=== PATIENT | male | born 1950 | race African-American/Black ===

== ENCOUNTER 2016-05-23 05:28 | Inpatient (IN) | payer OTHER ==
[~2016-05-23] VITALS: Ht 175.3 cm; Wt 130.6 kg
[~2016-05-23 05:28] MED LIST: ASPIRIN EC325 MG PO; COREG 25 MG TAB25 MG PO; CRESTOR20 M1 PO; DILAUDID 4 MG TA4 MG PO; DOK100 M1 PO; LOTREL 5 MG-401 CAP PO; MIRALAX17 GM PO; MS CONTIN30 MG PO; NITROSTAT0.6 MG SL; ZOFRAN ODT4 MG SL
--- NOTE | 2016-05-23 14:14 | Admission Core Measures ---
Admission Meds I reviewed the following Meds: Current Medications Sig/Mirza Start time Last Medication Dose Stop Time Status Admin Acetaminophen 975 MG ONCE 05/23 0000 AC (Tylenol) 05/23 2358 Amlodipine Besylate 5 MG DAILY 05/24 1000 UNVr (Norvasc) Atorvastatin Calcium 40 MG 1700 05/23 170 UNVr (Lipitor) Carvedilol 25 MG BID 05/23 2200 UNVr (Coreg) Cefazolin Sodium 3,000 MG ONCE 05/23 0000 NR (Kefzol-Ancef Inj) 05/23 2358 Nitroglycerin 0.4 MG ONCE PRN 05/23 1415 UNVr (Nitrostat) Oxycodone HCl 10 MG ONCE 05/23 0000 NR (Roxicodone) 05/23 2358 Acute Coronary Syndrome Inclusion Criteria ACS Diagnosis No Inpatient Core Measures LDL Reminder: If No, please order W/I first 24hr of stay Congestive Heart Failure Inclusion Criteria CHF Diagnosis No Cerebrovascular accident Inclusion Criteria CVA/TIA Diagnosis No Inpatient Core Measures Bedside Swallow Eval Reminder: If BSE failed, place ST order Antithrombotic Reminder: Order Antithrombotic Medication by end of day 2 Antithrombotic Reminder: Document Reason Antithrombotic Not ordered by end of day 2 AFIB/Flutter Reminder: If Present, add to problem list AFIB/Flutter Reminder: Order Anticoag Medication for pts with AFIB/Flutter Atherosclerosis Reminder: If Present, add to problem list LDL Reminder: If No, please order W/I first 24hr of stay PT Order Reminder: If No, please order Venous thromboembolism Inpatient Core Measures VTE Risk Factors: Age > 40, Surgery No [facility] VTE prophylaxis d/t No contraindications No VTE Pharm Prophylaxis d/t No contraindications Inclusion Criteria - Per Current guidelines, there needs to be overlap - treatment for the first 5 days of Warfarin therapy. - Parenteral Anticoagulation (IV or SC) needs to be - given along with Warfarin therapy. VTE Diagnosis No VTE Type NONE VTE Confirmed by (Test) NONE Problem List As ranked by this Provider includes Assessment & Plan 1. Unilateral primary osteoarthritis, left hip HOME MEDS Home Med List AMLODIPINE BESYLATE/BENAZEPRIL (Lotrel 5-40 MG Capsule) 1 CAP CAP 1 CAP PO DAILY BP (Reported) Aspirin E.c. (Ecotrin) 325 MG TAB 1 TAB PO BID PRN PAIN Carvedilol (Coreg) 25 MG TAB 1 TAB PO BID HEART (Reported) Nitroglycerin (Nitrostat) 0.6 MG TAB 0.6 MG SL PRN CHEST PAIN (Reported) Rosuvastatin Calcium (Crestor) 20 MG TAB 1 TAB PO DAILY CHOLESTEROL (Reported )
[2016-05-23] MEDS ORDERED: ASPIRIN EC325 M2 PO (14:17)
[2016-05-23] MEDS ORDERED: MIRALAX17 G1 PO (14:17)
[2016-05-23] MEDS ORDERED: PRILOSEC OTC20 M1 PO (14:17)
[2016-05-23] MEDS ORDERED: DILAUDID2 M1 PO (14:17)
[2016-05-23] MEDS ORDERED: COLACE100 M1 PO (14:17)
[2016-05-23] MEDS ORDERED: MS CONTIN30 M1 PO (14:17)
--- NOTE | 2016-05-23 14:19 | Patient Discharge Instructions ---
Discharge Instructions General Discharge Information You were seen/treated for: LEFT HIP PAIN You had these procedures: LEFT TOTAL HIP REPLACEMENT Watch for these problems: INCREASING PAIN DESPITE THE USE OF PAIN MEDICATION, REDNESS, WARMTH, SWELLING. DRAINAGE OF ANY TYPE FROM INCISION. INABILITY TO BEAR WEIGHT ON LEFT LEG. FEVER GREATER THAN 101.5 DEGREES. Do not soak the wound: Yes No bath, but you may shower: Yes Special Instructions: WOUND CARE: KEEP WOUND CLEAN AND DRY. YOUR HOME CARE NURSE WILL CHANGE YOUR DRESSING ON THE SECOND DAY AFTER YOUR SURGERY. DAILY DRY DRESSING CHANGES RECOMMENDED AFTER THAT. NO OINTMENTS OF ANY TYPE ON INCISION. BLOOD THINNER: YOU WILL BE TAKING 325 MG OF ASPIRIN TWICE DAILY. THIS IS IMPORTANT IT HELPS PROTECT YOU FROM DEVELOPING A BLOOD CLOT. YOU WILL BE TAKING THIS FOR 4 WEEKS. PLEASE TAKE WITH FOOD. YOU HAVE ALSO BEEN GIVEN PRILOSEC TO HELP PROTECT YOUR STOMACH LINING WELL. BOWEL REGIMEN: PAIN MEDICATION CAN OFTEN CAUSE CONSTIPATION. IT IS VERY IMPORTANT THAT YOU TAKE A STOOL SOFTENER AND A LAXATIVE TO ENSURE REGULAR BOWEL MOVEMENTS WHILE ON PAIN MEDICATION. Diet Continue normal diet: Yes Recommended Diet: Heart Healthy Additional DIET Information: ADVANCE TOLERATED Activity Full Activity/No Limits: No Activity Self Limited: Yes Pounds, do NOT lift more than: 10 Additional ACTIVITY Info: WEIGHT BEAR TOLERATED Acute Coronary Syndrome Inclusion Criteria At DC or during hospital stay patient has or had the following: ACS DIAGNOSIS No Discharge Core Measures Meds if any: Prescribed or Continued at Discharge Meds if any: NOT Prescribed or Continued at Discharge Congestive Heart Failure Inclusion Criteria At DC or during hospital stay patient has or had the following: CHF DIAGNOSIS No Discharge Core Measures Meds if any: Prescribed or Continued at Discharge Meds if any: NOT Prescribed or Continued at Discharge Cerebrovascular accident Inclusion Criteria At DC or during hospital stay patient has or had the following: CVA/TIA Diagnosis No Discharge Core Measures Meds if any: Prescribed or Continued at Discharge Meds if any: NOT Prescribed or Continued at Discharge Venous thromboembolism Inclusion Criteria VTE Diagnosis No VTE Type NONE VTE Confirmed by (Test) NONE Discharge Core Measures - Per Current guidelines, there needs to be overlap - treatment for the first 5 days of Warfarin therapy. - If discharged on Warfarin prior to 5 days of - overlap therapy, the patient will need to be - assessed for post discharge needs including - *Post discharge parental anticoagulation - *Warfarin and/or parental anticoagulation education - *Follow up date to check INR post discharge At least 5 days overlap therapy as Inpatient No Meds if any: Prescribed or Continued at Discharge Note: Overlap Therapy is Warfarin and Anticoagulant Meds if any: NOT Prescribed or Continued at Discharge
--- NOTE | 2016-05-23 14:23 | Surgical Discharge Summary ---
Visit Information Visit Dates Admission Date: 05/23/16 Discharge Date: 05/25/16 History of Present Illness Chief Complaint: LEFT HIP PAIN SECONDARY TO OSTEOARTHRITIS Medical History Neurological: NONE EENT: NONE Cardiovascular: angina, hypertension, hyperlipidemia Respiratory: NONE Gastrointestinal: NONE Hepatic: NONE Renal: NONE Musculoskeletal: osteoarthritis Psychiatric: NONE Endocrine: diabetes (no meds) Blood Disorders: NONE Cancer(s): NONE BELT MOLDER/Reproductive: NONE History of MRSA: No History of VRE: No History of CDIFF: No Surgical History Pertinent Surgical History: knee replacement Psychosocial History Who Do You Live With? Spouse What is Your Primary Language? Dominican Review of Systems: SEE H&P Hospital Course Course Attending Physician: DAVID RICHARDSON MD Primary Care Physician: TRIP MOFFETT MD Hospital Course: PATIENT WAS ADMITTED TO THE HOSPITAL ON 05/23/2016 FOR AN ELECTIVE LEFT TOTAL HIP REPLACEMENT. HE TOLERATED THE PROCEDURE WELL. HE WAS TRANSFERRED TO A GENERAL SURGICAL FLOOR. HIS DIET WAS ADVANCED TOLERATED. HIS VITAL SIGNS WERE STABLE AND WITHIN NORMAL LIMITS. HIS PAIN WAS WELL CONTROLLED WITH PO PAIN MEDICATION. HE VOIDED SPONTANEOUSLY. HE WAS EVALUATED AND TREATED BY PHYSICAL THERAPY. HE WAS DEEMED APPROPRIATE FOR DISCHARGE. Allergies: Coded Allergies: NO KNOWN ALLERGIES (03/25/15) Disposition Summary Disposition Principal Diagnosis: LEFT HIP UINLATERAL PRIMARY OSTEOARTHRITIS Additional Diagnosis: NONE Discharge Disposition: home health services Discharge Instructions General Discharge Information Code Status: Full Code Patient's Diet: HEART HEALTHY, ADVANCE TOLERATED Patient's Activity: WEIGHT BEAR TOLERATED ON LEFT LEG Follow-Up Instructions/Appts: CALL/CONTACT DR. RICHARDSON'S OFFICE TO ARRANGE/CONFIRM FOLLOW UP APPOINTMENT TO BE SEEN IN 6 WEEKS FROM DATE OF SURGERY. Medications at Discharge Discharge Medications: Stop taking the following medications: Aspirin E.c. (Ecotrin) 325 MG TAB ORAL TWICE DAILY as needed for PAIN Qty = 6 Continue taking these medications: AMLODIPINE BESYLATE/BENAZEPRIL (Lotrel 5-40 MG Capsule) 1 CAP CAP 1 Capsule ORAL DAILY Comments: Last Taken: 03/30/15 Time: 10:00 AM Carvedilol (Coreg) 25 MG TAB 1 Tablet ORAL TWICE DAILY Comments: Last Taken: 03/30/15 Time: 10:00 AM Rosuvastatin Calcium (Crestor) 20 MG TAB 1 Tablet ORAL DAILY Comments: NOT GIVEN IN HOSPITAL Nitroglycerin (Nitrostat) 0.6 MG TAB 0.6 Milligram SUBLINGUAL as needed for CHEST PAIN Comments: NOT GIVEN IN HOSPITAL Start taking the following new medications: Aspirin (Ecotrin*) 325 MG TABLET.DR 1 Tablet ORAL TWICE DAILY Qty = 60 No Refills Comments: Last Taken: 05/25/16 Time: 1030AM Docusate Sodium (Colace) 100 MG CAPSULE 1 Capsule ORAL TWICE DAILY Qty = 14 No Refills Instructions: DISCONTINUE USE IF YOU DEVELOP LOOSE STOOL OR DIARRHEA Comments: Last Taken: 05/25/16 Time: 1030AM Hydromorphone HCl (Dilaudid) 2 MG TABLET 1-2 Tablet ORAL EVERY 4-6 HOURS as needed for PAIN Qty = 36 No Refills Comments: Last Taken: 05/24/16 Time: 1200PM Polyethylene Glycol 3350 (Miralax) 17 GRAM POWD.PACK 1 Packet ORAL DAILY Qty = 7 No Refills Instructions: dissolve in water, DISCONTINUE USE IF YOU DEVELOP LOOSE STOOL OR DIARRHEA Comments: Last Taken: 05/25/16 Time: 1030AM Morphine Sulfate (Ms Contin) 30 MG TABLET.ER 1 Tablet ORAL TWICE DAILY Qty = 6 No Refills Comments: NOT GIVEN Omeprazole Magnesium (Prilosec Otc) 20 MG TABLET.DR 1 Tablet ORAL DAILY Qty = 30 No Refills Comments: NOT GIVEN
--- NOTE | 2016-05-23 15:50 | RADIOLOGY REPORT ---
EXAMINATION: XR HIP, LEFT CLINICAL INFORMATION: Status post total hip replacement. COMPARISON: None TECHNIQUE: Two views of the left hip. FINDINGS: The components of the left total hip arthroplasty are in their expected positions. Normal alignment is noted. No acute periprosthetic fracture. There is no significant soft tissue swelling of the postoperative hip. IMPRESSION: Satisfactory positioning and alignment of components of the left total hip arthroplasty.
[2016-05-23 16:00] VITALS: BP 138/94
--- NOTE | 2016-05-23 16:00 | NUR ---
ADMISSION NOTE: PT ARRIVED TO FLOOR FROM PACU IN STRETCHER WITH DISTRIBUTION A/OX3, ROOM AIR, IV SITE INTACT, FLUIDS RUNNING, SURG DSG TO LEFT HIP C/D/I, PAIN 03/30, NO N/V, +CMS, VSS, ORIENTED TO ROOM, WILL CONTINUE TO MONITOR.
--- NOTE | 2016-05-23 16:05 | Operative Report ---
Operative/Inv Procedure Report Surgery Date: 05/23/16 Name of Procedure: Left total hip replacement Pre-Operative Diagnosis: Primary left hip DJD Post-Operative Diagnosis: Same Estimated Blood Loss: 300 Surgeon/Casing Inspector: DEBRA JIMÉNEZ,DAVID Vines Anesthesia: block Operative/Procedure Note Note: Description of Procedure: The patient was taken to the operating room and positively identified. After induction of spinal anesthesia and administration of appropriate pre-operative antibiotics, the patient was positioned supine on the operating room table and all bony prominences were well padded. After performing a surgical timeout, the left lower extremity was prepped and draped in the usual sterile fashion. A direct anterior approach was made to the left hip. The incision was carried sharply through superficial soft tissues to the level of the fascia. Meticulous hemostasis was maintained with Bovie electocautery. The fascia over the tensor fascia óscar muscle was opened sharply and the interval between the TFL and the sartorius was entered bluntly taking care to stay lateral to the lateral femoral cutaneous nerve. Retractors were placed around the femoral neck and the pericapsular fat was identified. The ascending branches of the lateral femoral circumflex vessels were identified and carefully coagulated. The pericapsular fat and anterior capsule were then resected. A napkin ring osteotomy was performed and the femoral head was removed without difficulty. Attention was then turned to the acetabulum. After appropriate placement of retractors, the acetabulum was exposed. Soft tissue was cleaned from the acetabular margin and notch. Overhanging osteophytes were removed and the teardrop was exposed. The acetabulum was then sequentially reamed to accept a 56 mm Igor Tritanium hemispherical solid back shell. This was impacted into place in the appropriate position and fitted with a 36 mm Trident X3 zero degree polyethylene insert. Attention was then turned to the femur. After performing the appropriate ligament releases, the proximal femur was exposed. It was then sequentially broached to accept a size 4 [place] Anato stem. This was trialed for leg length and stability. The trial component was removed and the final component was impacted into place. The trunnion was carefully cleaned and fit with a 36 mm, + 2.5 Biolox delta ceramic femoral head. The hip was reduced and put through a full range of motion and found to be stable. The articular space was then irrigated with sterile saline. The periarticular soft tissues were infilitrated with Marcaine. The fascial layer was closed with interrupted #1 vicryl suture and the skin was re-approximated with interrupted 2 -0 vicryl. The skin was closed with a running 3-0 V-Lock suture. Steri-strips and a sterile dressing were applied. The patient was awakened and taken to the recovery room in satisfactory condition.
--- NOTE | 2016-05-23 17:22 | PN- Orthopedic ---
Subjective Subjective: POST-OP NOTE: Expected soreness. Pain controlled. Tolerating clears. Eager to eat. Denies dizziness. No shortness of breath. No chest pains. Due to void this evening. Not yet out of bed. Objective Vital Signs and I&Os Intake & Output 05/23 1600 05/23 0800 05/23 0000 05/22 1600 05/22 0800 05/22 0000 Intake Total Output Total Balance Patient 288 lb Weight (pacu vitals reviewed / stable) Physical Exam: General - alert & oriented x 3. comfortable. no acute distress. Lungs - clear bilaterally. no w/r/r. Cardiac - s1s2. reg. Abdomen - soft. nontendender. Extremities - left hip dressing c/d/i. no hematoma. ice pack in place. nvi. calves soft / nontender. athrombics in place b/l. Assessment/Plan Assessment/Plan This 65 year old male with hx htn, now POD#0 s/p left total hip replacement, anterior approach advance diet as tolerated pain control as ordered PT eval. wbat due to void this evening angelica-operative ancef x 2 doses home meds, including beta ina, ordered asa 325 mg bid d/c planning will d/w Core Measures/Miscellaneous Venous Thromboembolism VTE Risk Factors: Age > 40, Obesity, Surgery VTE Contraindications: No Contraindications VTE Diagnosis: No VTE Type: NONE VTE Confirmed by (Test): NONE Beta Ina Is Beta Ina a Home Med? Yes If Yes, Was This Ordered Today? Yes Antibiotics Is Patient on Antibiotics? Yes If Yes: prophylaxis
[2016-05-23 21:53] VITALS: BP 146/79
[2016-05-24 01:17] VITALS: BP 156/92
[2016-05-24 03:11] VITALS: BP 162/90
[2016-05-24 06:54] VITALS: BP 144/88
[2016-05-24 08:27] LABS: ABSOLUTE BASOPHIL COUNT 0 /CUMM (0.0-0.2); ABSOLUTE EOSINOPHIL COUNT 0 /CUMM (0.0-0.7); ABSOLUTE GRANULOCYTE CT 6.3 /CUMM (1.4-6.5); ABSOLUTE LYMPH COUNT 1.2 /CUMM (1.2-3.4); ABSOLUTE MONOCYTE COUNT 0.5 /CUMM (0.10-0.60); BASOPHIL % 0.2 % (0.0-2.0); EOSINOPHIL % 0 % (0-5); GRANULOCYTE % 78.4 % (42.2-75.2); HEMATOCRIT 36.5 % (42-52); MEAN CORPUSCULAR HGB CONC 32.5 G/DL (33.0-37.0); MEAN CORPUSCULAR VOLUME 86.1 FL (80.0-94.0); MEAN PLATELET VOLUME 7.8 FL (7.4-10.4); PLATELET COUNT 190 /CUMM (130-400); RBC DISTRIBUTION WIDTH 15.5 % (11.5-14.5); RED BLOOD CELL CT 4.24 /CUMM (4.70-6.10)
[2016-05-24 10:25] VITALS: BP 152/90
--- NOTE | 2016-05-24 10:34 | PN- Orthopedic ---
Subjective Subjective: Postoperative day #1 status post left hip arthroplasty, anterior approach. Complain of moderate pain, pain medication is helping however it is hampering his rehabilitation efforts. He states he is not as mobile as he hoped to be. Denies any fever or flulike illness. No chest pain, no calf pain, no shortness of breath. Objective Vital Signs and I&Os Vital Signs Date Time Temp Pulse Resp B/P Pulse O2 O2 Flow FiO2 Ox Delivery Rate 05/24 1025 98.1 85 20 152/90 96 Room Air / 0851 86 144/88 / 0850 86 144/80 / 0849 86 144/88 / 0654 97.7 86 18 144/88 95 Room Air 05/24 0311 98.2 89 18 162/90 94 Room Air 05/24 0117 98.2 92 18 156/92 93 Room Air 05/23 2330 102 / 2153 98.2 97 20 146/79 94 05/23 1600 97.9 77 18 138/94 97 Room Air Intake & Output 05/24 1600 05/24 0800 05/24 0000 05/23 1600 05/23 0800 05/23 0000 Intake Total 960 780 Output Total 850 900 Balance 110 -120 Intake, IV 600 300 Intake, Oral 360 480 Number 0 0 Bowel Movements Output, Urine 850 900 Patient 288 lb Weight Physical Exam: Well-developed well-nourished no apparent distress. HEENT: Atraumatic, extraocular motion intact Neck: Supple, no lymphadenopathy Respiratory: No respiratory distress Extremities: No edema Left lower extremity hip dressing in place, Dressing clean dry and intact Moderate thigh edema No signs of infection. No shortening or rotation Hip range of motion is limited and without unexpected pain Neurovascularly intact distally Bilateral calves are supple, nontender. Neuro: Alert and oriented x3 Psych: Mood affect normal, normal memory normal judgment. Skin: Warm and dry, no rash on exposed skin Results Last 48 Hours of Labs: Laboratory Tests 05/24 0650 Chemistry Sodium (137 - 145 mmol/L) 137 Potassium (3.5 - 5.1 mmol/L) 4.4 Chloride (98 - 107 mmol/L) 101 Carbon Dioxide (22 - 30 mmol/L) 31 H Anion Gap (5 - 16) 6 BUN (9 - 20 mg/dL) 18 Creatinine (0.7 - 1.2 mg/dL) 0.8 Estimated GFR (>60 ml/min) > 60 BUN/Creatinine Ratio (7 - 25 %) 22.5 Hematology CBC w Diff NO MAN DIFF REQ WBC (4.8 - 10.8 /CUMM) 8.0 RBC (4.70 - 6.10 /CUMM) 4.24 L Hgb (14.0 - 18.0 G/DL) 11.9 L Hct (42 - 52 %) 36.5 L MCV (80.0 - 94.0 FL) 86.1 MCH (27.0 - 31.0 PG) 28.0 RDW (11.5 - 14.5 %) 15.5 H Plt Count (130 - 400 /CUMM) 190 MPV (7.4 - 10.4 FL) 7.8 Gran % (42.2 - 75.2 %) 78.4 H Lymphocytes % (20.5 - 51.1 %) 15.2 L Monocytes % (1.7 - 9.3 %) 6.2 Eosinophils % (0 - 5 %) 0 Basophils % (0.0 - 2.0 %) 0.2 Absolute Granulocytes (1.4 - 6.5 /CUMM) 6.3 Absolute Lymphocytes (1.2 - 3.4 /CUMM) 1.2 Absolute Monocytes (0.10 - 0.60 /CUMM) 0.5 Absolute Eosinophils (0.0 - 0.7 /CUMM) 0 Absolute Basophils (0.0 - 0.2 /CUMM) 0 PUBS MCHC (33.0 - 37.0 G/DL) 32.5 L Assessment/Plan Assessment/Plan Postop day #1 status post left total hip arthroplasty anterior approach. -Orthopedically stable, progressing slowly with rehabilitation, plan for is discharge home tomorrow -GI prophylaxis, bowel regimen for constipation -Aspirin 325 mg by mouth twice a day for DVT prophylaxis, alps -Out of bed with physical therapy, weightbearing as tolerated -Pain medication as needed -Labs stable today Core Measures/Miscellaneous Venous Thromboembolism VTE Risk Factors: Age > 40, Obesity, Surgery VTE Contraindications: No Contraindications VTE Diagnosis: No VTE Type: NONE VTE Confirmed by (Test): NONE Beta Ina Is Beta Ina a Home Med? Yes If Yes, Was This Ordered Today? Yes Antibiotics Is Patient on Antibiotics? Yes If Yes: prophylaxis
[2016-05-24 14:53] VITALS: BP 136/80
[2016-05-24 21:47] VITALS: BP 132/72
[2016-05-25 06:46] VITALS: BP 134/70
--- NOTE | 2016-05-25 08:16 | PN- Orthopedic ---
Subjective Subjective: pod#2 s/p left gera no major complaints pain control improved denies cp, sob, no n+v with diet Objective Vital Signs and I&Os Vital Signs Date Time Temp Pulse Resp B/P Pulse O2 O2 Flow FiO2 Ox Delivery Rate / 0646 99.4 103 20 134/70 93 Room Air 04/ 2206 132/72 / 2147 98.8 97 20 132/72 92 /06 1453 98.3 87 18 136/80 98 Room Air / 1025 98.1 85 20 152/90 96 Room Air / 0851 86 144/88 05/24 0850 86 144/80 05/24 0849 86 144/88 Intake & Output 05/25 1600 05/25 0800 05/25 0000 05/24 1600 05/24 0805/24 0000 Intake Total 771 720 3616 960 780 Output Total 500 850 900 Balance 023 741 9511 110 -120 Intake, IV 600 300 570 600 300 Intake, Oral 240 450 720 360 480 Number 0 0 0 Bowel Movements Output, Urine 500 850 900 Patient 288 lb Weight Physical Exam: cv: rrr lungs: clear abd: soft, +bs ext: drsg changed, wound c/d/i distal cms intact no calf tenderness bilat Assessment/Plan Assessment/Plan ortho stable plan asa for dvt prophylaxis oob with pt/stairs if safe may d/c home tolday Core Measures/Miscellaneous Venous Thromboembolism VTE Risk Factors: Age > 40, Obesity, Surgery VTE Contraindications: No Contraindications VTE Diagnosis: No VTE Type: NONE VTE Confirmed by (Test): NONE Beta Ina Is Beta Ina a Home Med? Yes If Yes, Was This Ordered Today? Yes Antibiotics Is Patient on Antibiotics? Yes If Yes: prophylaxis
--- NOTE | 2016-05-25 12:41 | NUR ---
NURSING NOTE: PA UNABLE TO RECOMCILE 2 HOME MEDS ON CMR; PT NOT WILLING TO STAY FOR IT TO GET BACK; TIMES WRITTEN ON CMR
== END 2016-05-25 12:54 | disposition home health service (06) | DRG 470 ==
LOC: ENRESERVTM → ENRESERVDT → SDA 05:28 → 2NB 05:28 → ENPENDDIS 05:28 → 2NB 16:52
PROVIDERS: Nurse Practitioner; ADMIT Orthopaedic Surgery
PROC: 0SRB04A Replacement of Left Hip Joint with Ceramic on Polyethylene Synthetic Substitute, Uncemented, Open Approach (ICD-10-PCS; principal; 2016-05-23)
DX: M16.12 Unilateral primary osteoarthritis, left hip (principal); Z68.41 Body mass index [BMI] 40.0-44.9, adult; E66.9 Obesity, unspecified; I10 Essential (primary) hypertension; I25.2 Old myocardial infarction; I25.10 Atherosclerotic heart disease of native coronary artery without angina pectoris; E78.5 Hyperlipidemia, unspecified; E11.9 Type 2 diabetes mellitus without complications
CPT/HCPCS: 2NBP; 73502-LT; 82436; 88304; 97110-GO; 97116-GO; 97161-GP; 97530-GO; J0690; J0735; J2550; J3490; J7042